=== PATIENT | female | born 1960 | race Caucasian/White ===

== ENCOUNTER → 2018-12-31 | Outpatient (REF) | payer OTHER ==
[~2018-12-31] MED LIST: ACET-683 PO; B COTAB3 PO; ESTR3TA PO; FOLI800C PO; LEVO100T54 PO; SULF500T2 PO
== END ==
LOC: M LAB LCGH 12:03
PROVIDERS: ATTEND Obstetrics & Gynecology
DX: Z12.72 Encounter for screening for malignant neoplasm of vagina (principal); Z85.43 Personal history of malignant neoplasm of ovary